=== PATIENT | female | born 1970 | race Two or more races ===

== ENCOUNTER 2021-01-13 09:39 | Outpatient (REF) | payer OTHER, SELFPAY | END 2021-01-13 09:40 | disposition home or self-care (01) | LOC: HO.MDS 09:39 | PROVIDERS: Visit Provider Internal Medicine Nephrology | DX: R71.0 Precipitous drop in hematocrit (principal) | CPT/HCPCS: 36430; 86850; 86900; 86901; 86923; P9016 ==